=== PATIENT | female | born 1970 | race Caucasian/White ===

== ENCOUNTER 2017-01-08 11:07 | Emergency (ER) | payer OTHER ==
[~2017-01-08] VITALS: Ht 167.6 cm; Wt 113.6 kg
[~2017-01-08 11:07] MED LIST: DOCU-42 PO; FLUO10TA PO; MOT200T1 PO; OXYC-176 PO; SULF1TAB7 PO
[2017-01-08 11:20] VITALS: PULSE 62; RESP 18; O2SAT 97
[2017-01-08 11:33] VITALS: BP 131/101; PULSE 55; RESP 15; O2SAT 99
[2017-01-08 11:55] LABS: BASOPHILS % (AUTO) 0.3 % (0-3); MONOCYTES % (AUTO) 7.8 % (4-12); Mean Corpuscular Hemoglobin 27.3 pg (27.0-35.0); Mean Corpuscular Volume 81.6 fL (81-100); NEUTROPHILS % (AUTO) 51.3 % (40-74); Platelet Count 226 bil/L (150-400)
[2017-01-08 12:03] LABS: TROPONIN T 0.01 ug/L (0.0-0.011)
--- NOTE | 2017-01-08 12:10 | ED.REPORT ---
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 Pain radiated into her back, neck, and jaw. Associated symptoms include dizziness, general malaise, and cough. Currently symptoms are dramatically improved, with some residual discomfort. Patient denies shortness of breath, and history of cardiopulmonary disease. Yesterday afternoon she had a fever and diarrhea, and she reports difficulty sleeping last night. She was seen at urgent care earlier today and subsequently referred to the ER. Nursing Notes Stated Complaint: CHEST PAIN Chief Complaint: Chest Pain Nursing Notes Reviewed: Yes Allergies: Coded Allergies: No Known Allergies (Verified Allergy, Unknown, 11/02/12) Scheduled Docusate Sod-Expunged Drug, Do Not Renew! (Docusate Sod-Expunged Drug, Do Not Renew!) 100 Mg Capsule 100 MG PO DAILY FLUoxetine-Expunged Drug, Do not Renew! (Prozac-Expunged Drug, Do not Renew!) 10 Mg Tablet 30 MG PO DAILY Sulfamethoxazole/Trimethoprim (Bactrim DS) 1 Each Tablet 1 TAB PO BID Scheduled PRN Ibuprofen-Expunged Drug, Do Not Renew! (Motrin-Expunged Drug, Do Not Renew!) 200 Mg Tab 600 MG PO Q6 PRN PRN Oxycodone/APAP-Expunged Drug, Do Not Renew! (Percocet 5/325-Expunged Drug, Do Not Renew!) 1 Each Tablet 1-2 TAB PO Q4-6H PRN PRN General Time Seen by MD: 12:08 Chief Complaint Chest pain Hx Obtained From: Patient Arrived By: Walk-in Sudden in Onset?: Yes Onset Occurred: 9 - 12 hours ago Symptom Duration: Since onset Location: : Substernal Quality: Painful, Pressure Radiation: : Back: Jaw: Neck Migration/Movement: Reports: None Severity: Current: Mild Severity: Maximum: Severe Associated with: Reports: Cough, non-productive, Fever, Denies: Nausea, Shortness of Breath, Vomiting Context Related History: Denies: Congestive heart failure, Myocardial infarction Recent Healthcare: Recent doctor visit Similar Sx Previous: No Risk Factors HEART Score HEART for MACE: Mod index of susp (1), Age 45 - 65 (1), 1-2 CAD risk factors (1 ) HEART for MACE Score: 0-3 (low risk 0.9%-1.7%) PERC Rule PERC Result: All PERC criteria "No" Well's Criteria for PE Well's PE Score: 0-2 pts (low risk 3.6%) Past Medical History Past Medical History Reports: Hypertension, Denies: COPD, Congestive heart failure, Coronary artery disease, Diabetes mellitus Denies: Atrial fibrillation Family History Family history of IA - father at age 32 Smoking History Current Every Day Smoker Social History Alcohol Use: In recovery Drug Use: In recovery, Cocaine Ambulatory Status Independent Review of Systems Review of Systems Note: +Jaw Pain Constitutional: Reports: Fever, Malaise, Denies: Chills Respiratory: Reports: Non-productive cough, Denies: Shortness of breath Cardiovascular: Reports: Chest pain GI: Reports: Diarrhea, Denies: Nausea, Vomiting Musculoskeletal: Reports: Back pain, Neck pain, Denies: Extremity pain Neurologic: Reports: Dizziness Complete sys rev & neg: except as marked. Physical Exam Initial Vital Signs Vital Signs (First) Date Time Temp Pulse Resp B/P Pulse Ox O2 Delivery O2 Flow Rate FiO2 01/08/17 11:20 62 18 97 01/08/17 11:33 131/101 Room Air Initial VS: Reviewed Head / Eyes: Atraumatic, Normocephalic Neck: Supple, Non-tender, Full range of motion Extremities: Vascular intact, Neuro intact, No swelling, No tenderness Skin: Warm, Dry, No cyanosis Neurologic: Alert, Oriented, Nonfocal Psychiatric: Mood/affect normal, Behavior normal, Normal thought content General/Constitutional: Awake, Alert, Well developed, Well nourished Respiratory / Chest: Breath sounds NL, Breath sounds = bilat, No respiratory distress, No rales, No rhonchi, No wheezing Cardiovascular: Heart rate NL, Regular rhythm, Heart sounds NL, No murmurs, Peripheral circulation NL, Pulses = bilaterally, No gross BP differential Abdomen: Soft, Non-tender, No guarding, No rebound, No distention Interpretation & Diagnostics Lab Results Interpretation Result Diagram: 01/08/17 1145 01/08/17 1145 Test 01/08/17 11:45 White Blood Count 6.3th/mm3 (3.8-10.1) Red Blood Count 4.79mil/mm3 (3.90-5.20) Hemoglobin 13.1g/dL (12.0-15.6) Hematocrit 39.1% (35.0-46.0) Mean Corpuscular Volume 81.6fL (81-100) Mean Corpuscular Hemoglobin 27.3pg (27.0-35.0) Mean Corpuscular Hemoglobin Concent 33.5% (32.0-37.0) Red Cell Distribution Width 13.7% (12.3-15.4) Platelet Count 226bil/L (150-400) Neutrophils (%) (Auto) 51.3% (40-74) Lymphocytes (%) (Auto) 37.4% (14-46) Monocytes (%) (Auto) 7.8% (4-12) Eosinophils (%) (Auto) 3.0% (0-5) Basophils (%) (Auto) 0.3% (0-3) Sodium Level 141mEq/L (134-144) Potassium Level 3.8mEq/L (3.5-5.2) Chloride Level 104mEq/L (97-108) Carbon Dioxide Level 22mmol/L (18-29) Blood Urea Nitrogen 7mg/dL (6-24) Creatinine 0.65mg/dL (0.57-1.00) Estimat Glomerular Filtration Rate 139mL/min (>59) Glucose Level 109mg/dL (60-99) Calcium Level 8.7mg/dL (8.5-10.1) Magnesium Level 2.1mg/dL (1.6-2.6) Total Bilirubin 0.4mg/dL (0.0-1.2) Aspartate Amino Transf (AST/SGOT) 18U/L (0-50) Alanine Aminotransferase (ALT/SGPT) 19U/L (0-32) Alkaline Phosphatase 95U/L (25-150) Troponin T 0.010ug/L (0.0-0.011) Total Protein 6.8g/dL (6.4-8.4) Albumin 4.2g/dL (3.4-5.0) ECG Interpretation ECG Interpretation: Sinus rhythm, rate 57 Low voltage, precordial leads Time: 11:37 Interpreted by: ED physician Re-Eval/Medical Decision Time of Eval: 12:31 Consultation : Referral / Consult Name: Regla Carrillo MD Consulted With: Primary care physician Call Returned at: 12:27 Slubber Tender: Will see in office Counseled Regarding: Diagnosis, Lab results, Need for follow-up, When/why to return to ED Discharge & Departure Primary Impression: Chest pain Chest pain type: unspecified Qualified Code: R07.9 - Chest pain, unspecified Disposition: Home Discharge Condition All VS Reviewed: Yes Condition: Stable Patient Instructions: Chest Pain (ED) Additional Instructions: No evidence currently of an acute heart attack but I do have some concerns that your pain may be related to your heart. You look well enough and your tests are reassuring enough that I think outpatient evaluation is appropriate at this point. Dr. Carrillo's office will be arranging a stress test for you in the coming days. You should call the office later this afternoon for the specifics. Dr. Carrillo will see you following the stress test. Return to the ER with returning or worsening pain, shortness of breath, profuse sweating, nausea, and any other concerning symptoms. Referrals: Regla Carrillo MD (PCP) Naz Attestation Portions of this note were transcribed by Kishor Yuan. I, Dr. Fernández, personally performed the history, physical exam and medical decision-making; I reviewed and confirmed the accuracy of the information in the transcribed note. Signed by: Naz Woodson, 01/08/2017 and *time* copies to: Regla Carrillo MD, Kirk H MD Jan 08, 2017 12:10 KISHOR YUAN Jan 08, 2017 12:19
[2017-01-08 12:15] LABS: Magnesium 2.1 mg/dL (1.6-2.6)
--- NOTE | 2017-01-08 13:00 | DRSVH ---
PROCEDURE: X-RAY CHEST ONE VIEW, PORTABLE ([id number]) INDICATIONS: CP TECHNIQUE: One view of the chest was acquired. COMPARISON: None. FINDINGS: Surgical changes and devices: None. Lungs and pleura: No pleural effusions or pneumothorax. Lungs are clear. Mediastinum: Mediastinal contours appear normal. Heart size is normal. Bones and chest wall: No suspicious bony lesions. Overlying soft tissues appear unremarkable. IMPRESSION: Normal for age. Source of chest pain is not seen. Dictated by: Naveed Quintero M.D. on 01/08/2017 at 12:58 Approved by: Naveed Quintero M.D. on 01/08/2017 at 12:58
[2017-01-08 13:06] VITALS: BP 114/82; PULSE 53; RESP 15; O2SAT 99
== END 2017-01-08 12:47 | disposition home or self-care (01) ==
LOC: SED 11:07
DX: R07.2 Precordial pain (principal); R42 Dizziness and giddiness; R05 Cough; R53.81 Other malaise; I10 Essential (primary) hypertension; F17.200 Nicotine dependence, unspecified, uncomplicated